=== PATIENT | male | born 1945 | race Caucasian/White ===

== ENCOUNTER 2018-11-13 15:38 | Emergency (ER) | payer MEDICARE, OTHER ==
[~2018-11-13] VITALS: Ht 182.9 cm; Wt 106.6 kg
[2018-11-13] MEDS ORDERED: ATEN25 PO (16:00)
[2018-11-13] MEDS ORDERED: LISI20 (16:01)
[2018-11-13] MEDS ORDERED: ASPI81CH PO (16:02)
== END 2018-11-13 16:05 | disposition home or self-care (01) ==
LOC: ER 15:38
DX: I10 Essential (primary) hypertension (principal); Z79.899 Other long term (current) drug therapy
CPT/HCPCS: 99283

== ENCOUNTER → 2021-03-05 | Outpatient (CLI) | payer MEDICARE, OTHER ==
[~2021-03-05] MED LIST: ASPI81CH PO; ATEN25 PO; ATEN50 PO; Aspir 8181 MG PO; LISI20; Omega 3 1,0001 EACH PO; [UNRECOGNIZED DRUG - OTHER] PO
== END ==
LOC: LAB SHORT 14:30 → LAB 14:30
DX: L57.0 Actinic keratosis (principal)
CPT/HCPCS: 88305

== ENCOUNTER → 2021-03-19 | Outpatient (CLI) | payer MEDICARE, OTHER | LOC: LAB 14:53 → LAB SHORT 14:53 | DX: D48.5 Neoplasm of uncertain behavior of skin (principal); L57.0 Actinic keratosis; L08.89 Other specified local infections of the skin and subcutaneous tissue; B88.0 Other acariasis; L73.8 Other specified follicular disorders | CPT/HCPCS: 88305; 88312 ==

== ENCOUNTER 2024-02-22 07:18 | Emergency (ER) | payer OTHER ==
[~2024-02-22] VITALS: Ht 182.9 cm; Wt 106.6 kg
[2024-02-22 08:00] VITALS: BP 141/78
[2024-02-22] MEDS ORDERED: Ipratropium/Albuterol SulF 2.5-0.5MG/3 ML Amp INH PRN (08:15)
[2024-02-22 09:06] LABS: Influenza B, PCR NEGATIVE (NEGATIVE); Resp Syncytial Virus, PCR NEGATIVE (NEGATIVE); SARS-Cov-2 (COVID-19) PCR, MMC NEGATIVE (NEGATIVE)
[2024-02-22 09:18] LABS: Influenza A, PCR POSITIVE (NEGATIVE)
[2024-02-22 09:25] LABS: BASOPHILS ABSOLUTE AUTO 0.05 K/mm3 (0.00-0.23); BASOPHILS PERCENT AUTO 1 % (0-2); EOSINOPHILS ABSOLUTE AUTO 0.13 K/mm3 (0.00-0.68); EOSINOPHILS PERCENT AUTO 2 % (0-6); Hematocrit 48.5 % (37.0-53.0); Hemoglobin 16.4 g/dL (13.5-17.5); IMMATURE GRAN ABSOLUTE AUTO 0.01 K/mm3 (0.00-0.10); IMMATURE GRAN PERCENT AUTO 0 % (0-1); LYMPHOCYTES ABSOLUTE AUTO 1.02 K/mm3 (0.84-5.20); LYMPHOCYTES PERCENT AUTO 19 % (21-46); MONOCYTES ABSOLUTE AUTO 0.69 K/mm3 (0.16-1.47); MONOCYTES PERCENT AUTO 13 % (4-13); Mean Corpuscular HGB 31.2 pg (26.0-34.0); Mean Corpuscular HGB Conc 33.8 g/dL (31.5-36.5); Mean Corpuscular Volume 92 fL (80-100); Mean Platelet Volume 9.8 fL (9.1-12.4); NEUTROPHILS ABSOLUTE AUTO 3.57 K/mm3 (1.96-9.15); NEUTROPHILS PERCENT AUTO 65 % (41-73); Platelet Count 189 K/mm3 (150-400); RDW Coefficient Variation 12.5 % (11.7-14.2); RDW Standard Deviation 42.8 fL (35.1-46.3); Red Blood Cell Count 5.26 M/mm3 (4.30-5.90); White Blood Cell Count 5.47 K/mm3 (4.00-11.30)
[2024-02-22 09:46] LABS: Albumin, Blood 3.5 g/dL (3.4-5.0); Albumin/Globulin Ratio 0.9 (0.8-1.8); Bilirubin, Total 0.6 mg/dL (0.1-1.0); Bun/Creatinine Ratio 14.1 (12.0-20.0); Calcium, Blood 8.7 mg/dL (8.5-10.1); Creatinine, Blood 0.92 mg/dL (0.60-1.20); Globulin, Blood 4.1 g/dL (2.2-4.0); Potassium, Blood 3.9 mmol/L (3.5-5.5); Total Protein, Blood 7.6 g/dL (6.4-8.2)
== END 2024-02-22 10:55 | disposition home or self-care (01) ==
LOC: ER 07:18
PROVIDERS: Physician Assistant
DX: J10.1 Influenza due to other identified influenza virus with other respiratory manifestations (principal); I10 Essential (primary) hypertension; J45.909 Unspecified asthma, uncomplicated; Z79.82 Long term (current) use of aspirin; Z79.899 Other long term (current) drug therapy; Z87.891 Personal history of nicotine dependence
CPT/HCPCS: 0241U; 71045; 80053; 85025; 93005; 93010; 99284-25

== ENCOUNTER 2024-09-04 11:07 | Day surgery (SDC) | payer OTHER ==
[~2024-09-04] VITALS: Ht 182.9 cm; Wt 107.9 kg
[~2024-09-04 11:07] MED LIST changes: +Lactated Ringer's 1,000 ML IV ONE; +propofoL 50 ML IV ONE
[2024-09-04] MEDS ORDERED: Pravachol20 MG PO (11:31)
[2024-09-04] MEDS ORDERED: Tenormin50 MG (11:32)
[2024-09-04] MEDS ORDERED: Lactated Ringer's 1,000 ML IV ONE (11:59)
[2024-09-04 12:46] VITALS: BP 110/68
== END 2024-09-04 12:54 | disposition home or self-care (01) ==
LOC: ORSCSDS 11:07
PROVIDERS: Internal Medicine Gastroenterology
PROC: 0DJD8ZZ Inspection of Lower Intestinal Tract, Via Natural or Artificial Opening Endoscopic (ICD-10-PCS; principal; 2024-09-04 12:30)
DX: Z12.11 Encounter for screening for malignant neoplasm of colon (principal); Z86.0102 Personal history of hyperplastic colon polyps; Z83.719 Family history of colon polyps, unspecified; I10 Essential (primary) hypertension; K57.30 Diverticulosis of large intestine without perforation or abscess without bleeding; I35.8 Other nonrheumatic aortic valve disorders; K63.89 Other specified diseases of intestine; Z79.899 Other long term (current) drug therapy
CPT/HCPCS: J2704; J7120